=== PATIENT | female | born 1955 | race Asian ===

== ENCOUNTER 2018-04-05 13:46 | Emergency (ER) | payer OTHER ==
[~2018-04-05] VITALS: Ht 152.4 cm; Wt 48.4 kg
[2018-04-05 13:58] VITALS: BP 158/95
== END 2018-04-05 15:19 | disposition home or self-care (01) ==
LOC: ED 15:13
DX: S16.1XXA Strain of muscle, fascia and tendon at neck level, initial encounter (principal); I10 Essential (primary) hypertension; V43.53XA Car driver injured in collision with pick-up truck in traffic accident, initial encounter; Y93.89 Activity, other specified; Y92.89 Other specified places as the place of occurrence of the external cause; Y99.8 Other external cause status
CPT/HCPCS: 72050; 99283

== ENCOUNTER 2020-08-23 08:53 | Day surgery (SDC) | payer OTHER ==
[~2020-08-23] VITALS: Ht 152.4 cm; Wt 45.0 kg
[~2020-08-23 08:53] MED LIST: BUPIVACAINE/PF 0.5% ONE; EPINEPHRINE 1 MG/ML, 1ML ONE
[2020-08-23] MEDS ORDERED: CHLORHEXIDINE 15 ML UDC ONE (09:52)
[2020-08-23 09:57] VITALS: BP 107/73
[2020-08-23] MEDS ORDERED: CHLORHEXIDINE 15 ML UDC PO ONE (10:00)
[2020-08-23] MEDS ORDERED: LACTATED RINGERS 1,000 ML IV SCH (10:00)
[2020-08-23] MEDS ORDERED: CHOL10003 PO (10:09)
[2020-08-23] MEDS ORDERED: LISI-170 PO (10:09)
[2020-08-23] MEDS ORDERED: AMLO2.5T5 PO (10:09)
[2020-08-23] MEDS ORDERED: OXYC5CAP2 PO (10:09)
[2020-08-23 10:43] LABS: ALANINE AMINOTRANSFERASE 21 U/L (12-78); ALBUMIN 3.8 g/dL (3.4-5.0); ANION GAP 6 mmol/L (5-15); CALCIUM 9.8 mg/dL (8.5-10.1); CHLORIDE 105 mmol/L (98-107); CREATININE 0.83 mg/dL (0.55-1.02)
[2020-08-23 10:45] LABS: ALKALINE PHOSPHATASE 91 U/L (45-117); BILIRUBIN,TOTAL 0.4 mg/dL (0.2-1.0)
[2020-08-23] MEDS ORDERED: FENTANYL PF 100 MCG/2ML ONE ×2 (10:55→11:53)
[2020-08-23] MEDS ORDERED: EPHEDRINE 50 MG/ML, 1ML ONE (11:03)
[2020-08-23] MEDS ORDERED: CEFAZOLIN 1,000 MG ONE (11:03)
[2020-08-23] MEDS ORDERED: PROPOFOL 10 MG/ML, 20ML ONE (11:03)
[2020-08-23] MEDS ORDERED: ONDANSETRON 2MG/ML, 2ML ONE (11:03)
[2020-08-23] MEDS ORDERED: DEXAMETHASONE 4 MG/ML, 1ML ONE (11:03)
[2020-08-23] MEDS ORDERED: DIAZEPAM 5 MG/ML, 2ML IVPush PRN (11:30)
[2020-08-23] MEDS ORDERED: OXYcodone 5 MG/5 ML ORAL.SOL UDC PO PRN (11:30)
[2020-08-23] MEDS ORDERED: METOCLOPRAMIDE 5 MG/ML, 2ML IVPush PRN (11:30)
[2020-08-23] MEDS ORDERED: HYDROmorphone 1 MG/ML, 1ML INJ ONE (11:30)
[2020-08-23] MEDS ORDERED: PROMETHAZINE 25 MG/ML, 1ML IVPush PRN (11:30)
[2020-08-23] MEDS ORDERED: METOPROLOL 1 MG/ML, 5ML IV PRN (11:30)
[2020-08-23] MEDS ORDERED: hydrALAzine 20 MG/ML, 1ML IV PRN (11:30)
[2020-08-23] MEDS ORDERED: ACETAMINOPHEN 325 MG TABLET PO PRN (11:30)
[2020-08-23] MEDS ORDERED: KETOROLAC 30 MG/1 ML IV PRN (11:30)
[2020-08-23] MEDS ORDERED: HYDROmorphone 1 MG/ML, 1ML INJ IVPush PRN (11:30)
[2020-08-23] MEDS ORDERED: LABETALOL 5MG/ML, 20ML IV PRN (11:30)
[2020-08-23] MEDS ORDERED: MEPERIDINE/PF 25MG/0.5ML IVPush PRN (11:30)
[2020-08-23] MEDS ORDERED: ONDANSETRON 2MG/ML, 2ML IVPush PRN (11:30)
[2020-08-23] MEDS ORDERED: DIPHENHYDRAMINE 50 MG/ML, 1ML IVPush PRN (11:30)
[2020-08-23] MEDS ORDERED: HALOPERIDOL 5 MG/ML IV PRN (11:30)
[2020-08-23] MEDS ORDERED: EPHEDRINE 50 MG/ML, 1ML IVPush PRN (11:30)
[2020-08-23] MEDS: FENTANYL PF 100 MCG/2ML IV PRN ×2 (11:54→12:02)
[2020-08-23] MEDS ORDERED: OXYcodone 5 MG/5 ML ORAL.SOL UDC ONE (11:54)
[2020-08-23] MEDS ORDERED: KETOROLAC 30 MG/1 ML ONE (11:54)
== END 2020-08-23 15:00 | disposition home or self-care (01) ==
LOC: OUT 08:53
PROVIDERS: ATTEND Orthopaedic Surgery
DX: M87.845 Other osteonecrosis, left finger(s) (principal); I10 Essential (primary) hypertension; Z20.822 Contact with and (suspected) exposure to COVID-19; Z79.899 Other long term (current) drug therapy
CPT/HCPCS: 26951; 36415; 80053; 87635; 88305; 93005; J0690; J1100; J1170; J1885; J2405; J2704; J3010; J7120; J0171